=== PATIENT | female | born 1990 | race Caucasian/White ===

== ENCOUNTER 2020-08-20 11:08 | Emergency (ER) | payer OTHER ==
[~2020-08-20 11:08] MED LIST: CIPRO500 MG PO; FLAGYL500 MG PO; PHENERGAN 25 MG25 M1 PO
== END 2020-08-20 14:27 | disposition left against medical advice (07) ==
LOC: ER1 11:08
DX: Z53.21 Procedure and treatment not carried out due to patient leaving prior to being seen by health care provider (principal)